=== PATIENT | female | born 1985 | race Caucasian/White ===

== ENCOUNTER → 2018-04-09 | Outpatient (CLI) | payer SELFPAY ==
[~2018-04-09] MED LIST: FLEXERIL10 MG PO; GLUCOPHAGE850 MG PO
== END | disposition home or self-care (01) ==
LOC: RAD 13:56
DX: R10.31 Right lower quadrant pain (principal); Z87.42 Personal history of other diseases of the female genital tract
CPT/HCPCS: 76856

== ENCOUNTER → 2018-04-24 | Outpatient (CLI) | payer SELFPAY | END | disposition home or self-care (01) | LOC: RAD 07:41 | DX: R10.31 Right lower quadrant pain (principal); R19.7 Diarrhea, unspecified | CPT/HCPCS: 74177 ==